=== PATIENT | male | born 1970 | race African-American/Black ===

== ENCOUNTER 2024-09-05 14:00 | Emergency (ER) | payer OTHER ==
--- NOTE | 2024-09-05 14:13 | ED ---
Syncope HPI - General Source: patient, EMS Mode of arrival: EMS <David Noe - Last Filed: 09/05/24 16:06> <Bandar Piña - Last Filed: 09/05/24 20:35> - General Stated Complaint: near syncope - History of Present Illness Initial Comments: Patient is a 54-year-old male with history of alcohol use disorder presented to the ER with dizziness, lightheadedness, nausea and vomiting started earlier this afternoon after he woke from a nap. Patient reports that this afternoon after he woke up from nap he started feeling nauseous and reports his legs felt funny. He also endorsed lightheadedness. Denies any falls. No loss of consciousness or passing out. Patient has been on naltrexone for alcohol use disorder for the past week however missed the doses for today and yesterday. Patient denies fever, chills, cough, runny nose, sore throat, chest pain, palpitations, belly pain, diarrhea, constipation, lower extremity swelling. (David Noe) - Related Data Home Medications Medication Instructions Recorded Confirmed Naltrexone HCl 50 mg PO PC-LUNCH 09/05/24 09/05/24 hydrOXYzine HCL [Atarax] 50 mg PO HS 09/05/24 09/05/24 Previous Rx's Medication Instructions Recorded Fluticasone Nasal [place] [Flonase 1 spray EA NOSTRIL DAILY #16 gm 09/05/24 Nasal [place]] Sodium Chloride [Saline Mist] 1 spray EA NOSTRIL TID #45 ml 09/05/24 Allergies Allergy/AdvReac Type Severity Reaction Status Date / Time No Known Allergies Allergy Verified 09/05/24 14:32 Review of Systems ROS Other: All systems not noted in ROS Statement are negative. Constitutional: Reports: weakness. Denies: fever, chills ENT: Denies: ear pain, throat pain Respiratory: Denies: cough, dyspnea Cardiovascular: Denies: chest pain, palpitations Gastrointestinal: Reports: nausea. Denies: abdominal pain, vomiting, diarrhea, constipation Musculoskeletal: Denies: back pain <David Noe - Last Filed: 09/05/24 16:06> ROS Other: All systems not noted in ROS Statement are negative. <Bandar Piña - Last Filed: 09/05/24 20:35> ROS Statement: Those systems with pertinent positive or pertinent negative responses have been documented in the HPI. Past Medical History Past Medical History: No Reported History Past Surgical History: Orthopedic Surgery Additional Past Surgical History / Comment(s): plates in L side jaw Smoking Status: Current every day smoker Past Alcohol Use History: Abuse Past Drug Use History: None Reported <David Noe - Last Filed: 09/05/24 16:06> General Exam <David Noe - Last Filed: 09/05/24 16:06> - General Exam Comments Initial Comments: GENERAL: This is a 54-year-old in no apparent distress at the time of examination. Pleasant and cooperative. HEENT: Head is atraumatic, normocephalic. Pupils are equal, round, and reactive to light. Sclerae anicteric. Conjunctivae are clear. RESPIRATORY: Clear to auscultation. No wheezes, rales, or rhonchi. No use of accessory muscles. CARDIOVASCULAR: Regular rate and rhythm. S1 and S2 noted. No systolic or diastolic murmur auscultated. GASTROINTESTINAL: No distention noted. Abdomen soft and round. Normal active bowel sounds auscultated x 4 quadrants. INTEGUMENTARY: No cyanosis. No jaundice. No rashes noted. No cellulitis noted. EXTREMITIES: 2+ peripheral pulses. No evidence of peripheral edema. No calf tenderness noted. NEUROLOGIC: Cranial nerves II-XII intact. Intact bilateral muscle strength and sensation in upper and lower extremities PSYCHIATRIC: Awake, alert, and oriented X 3. Appropriate affect. Intact judgement and insight. (David Noe) Course Vital Signs 09/05/24 09/05/24 14:02 18:23 Temperature 98.3 F 98.6 F Pulse Rate 56 L 62 Respiratory 18 20 Rate Blood Pressure 149/91 186/99 O2 Sat by Pulse 100 100 Oximetry Medical Decision Making - Lab Data Result diagrams: 09/05/24 14:44 09/05/24 14:44 <David Noe - Last Filed: 09/05/24 16:06> - Lab Data Result diagrams: 09/05/24 14:44 09/05/24 14:44 <Bandar Piña - Last Filed: 09/05/24 20:35> - Medical Decision Making Was pt. sent in by a medical professional or institution (, PA, BIZTALK CONSULTANT, urgent care, hospital, or halfway...) When possible be specific @ -No Did you speak to anyone other than the patient for history (EMS, parent, family, police, friend...)? What history was obtained from this source @ -No Did you review nursing and triage notes (agree or disagree)? Why? @ -I reviewed and agree with nursing and triage notes Were old charts reviewed (outside hosp., previous admission, EMS record, old EKG, old radiological studies, urgent care reports/EKG's, halfway records)? Report findings @ -No old charts were reviewed Differential Diagnosis? @ -Viral gastroenteritis, COVID, flu, RSV EKG interpreted by me (3pts min.). @ -Sinus bradycardia with ventricular rate 59 bpm, QTc interval 4.1 ms, no ST elevation or depression. X-rays interpreted by me (1pt min.). @ -Chest x-ray showed no acute cardiopulmonary disease/process. CT interpreted by me (1pt min.). @ -None done U/S interpreted by me (1pt. min.). @ -None done What testing was considered but not performed or refused? (CT, X-rays, U/S, labs)? Why? @ -None What meds were considered but not given or refused? Why? @ -None Did you discuss the management of the patient with other professionals (professionals i.e. , PA, BIZTALK CONSULTANT, lab, RT, psych nurse, sexual assault social worker, buttonhole marker, teacher, chief resource officer, oil field caser)? Give summary @ -Discussed with attending physician Was smoking cessation discussed for >3mins.? @ -No Was critical care preformed (if so, how long)? @ -No Were there social determinants of health that impacted care today? How? (Homeles sness, low income, unemployed, alcoholism, drug addiction, transportation, low edu. Level, literacy, decrease access to med. care, long-term, rehab)? @ -No Was there de-escalation of care discussed even if they declined (Discuss DNR or withdrawal of care, Hospice)? DNR status @ -No What co-morbidities impacted this encounter? (DM, HTN, Smoking, COPD, CAD, Cancer, CVA, ARF, Chemo, Hep., AIDS, mental health diagnosis, sleep apnea, morbid obesity)? @ -Alcohol use disorder Was patient admitted / discharged? Hospital course, mention meds given and route, prescriptions, significant lab abnormalities, going to OR and other pertinent info. @ -Patient is a 54-year-old male with history of alcohol use disorder presented to the ER with acute onset nausea, lightheadedness that started this afternoon. Chest x-ray showed no acute cardiopulmonary disease/process. EKG showed sinus bradycardia with ventricular rate 59 bpm, QTc interval 4.1 ms, no ST elevation or depression. CBC was unremarkable. CMP showed elevated creatinine. Pending viral respiratory panel results. I have signed off this patient to Dr. Piña. Undiagnosed new problem with uncertain prognosis? @ -No Drug Therapy requiring intensive monitoring for toxicity (Heparin, Nitro, Insulin, Cardizem)? @ -No Were any procedures done? @ -No Diagnosis/symptom? @ -Viral gastroenteritis Acute, or Chronic, or Acute on Chronic? @ -Acute Uncomplicated (without systemic symptoms) or Complicated (systemic symptoms)? @ -Uncomplicated Side effects of treatment? @ -No Exacerbation, Progression, or Severe Exacerbation? @ -No Poses a threat to life or bodily function? How? (Chest pain, [place], [place], pneumonia, PE, COPD, DKA, ARF, appy, cholecystitis, CVA, Diverticulitis, Homicidal, Suicidal, threat to staff... and all critical care pts) @ -No (Kusum,David) I personally saw the patient and performed the critical portion of the service. I discussed the patient care with the resident. I directed management, care planning and final disposition of the patient. This includes, but not limited to, review of all lab work, radiological studies, EKG's, consultations, vital signs, and nursing notes. EKG interpreted by me (3pts min.) @As above X-Rays interpreted by me (1 pt min.) @Chest x-ray reveals no obvious acute cardiopulmonary process CT interpreted by me ( 1pt min.) @None U/S interpreted by me (1 pt min.) @None 12-lead Electrocardiogram Interpretation Note EKG was reviewed and interpreted by myself. 12-lead ECG performed at 1426 is interpreted by me as revealing sinus bradycardia at a rate of 59 beats per minute. [place] is normal. [place] interval is 151 ms, QRS duration is 105 ms, QTc is 421 ms.. There were no ST or T wave abnormalities to suggest myocardial ischemia or injury. R wave progression across the precordium was satisfactory. By my interpretation this EKG is non-diagnostic for acute ischemia. Patient was being evaluated by resident for lightheadedness, nausea and vomiting, as well as some chronic neck pain that awoke him from nap. Laboratory studies returned unremarkable. Mild creatinine bump of 1.31 but patient is receiving IV fluids. Likely reactive to dehydration. Viral swabs negative. Chest x-ray unremarkable. EKG unremarkable. When I evaluate the patient we discussed possibility of possible viral syndrome. He did disclose to me that he was having some sinus congestion is concerned for sinus infection. I did examine his ears which were unremarkable bilaterally. Patient does have chronic cervical spine issues and he believes this is similar to previous episodes of it as he does have a history of radiculopathy which she is having. I discussed with them, and patient will receive a dose of IV steroids as well as Toradol. He has Motrin at home. He is also asking for a conversion from Flonase and nasal spray which will be provided. He overall is feeling improved. He will be discharged home at this time with strict return precautions. He was in agreement this plan. He is overall feeling improved. Diagnosis/symptom? @ -Congestion, chronic neck pain Acute, or Chronic, or Acute on Chronic? @ -Acute Uncomplicated (without systemic symptoms) or Complicated (systemic symptoms)? @ -Uncomplicated Side effects of treatment? @ -None Exacerbation, Progression, or Severe Exacerbation] @ -No Poses a threat to life or bodily function? @ -Unlikely at this time (Bandar Piña) - Lab Data Lab Results 09/05/24 09/05/24 09/05/24 Range/Units 14:44 14:44 16:19 WBC 5.9 (3.8-10.6) k/uL RBC 4.61 (4.30-5.90) m/uL Hgb 13.7 (13.0-17.5) gm/dL Hct 41.0 (39.0-53.0) % MCV 89.0 (80.0-100.0) fL MCH 29.7 (25.0-35.0) pg MCHC 33.3 (31.0-37.0) g/dL RDW 13.6 (11.5-15.5) % Plt Count 211 (150-450) k/uL MPV 8.0 Neutrophils % 47 % Lymphocytes % 42 % Monocytes % 7 % Eosinophils % 1 % Basophils % 1 % Neutrophils # 2.8 (1.3-7.7) k/uL Lymphocytes # 2.5 (1.0-4.8) k/uL Monocytes # 0.4 (0-1.0) k/uL Eosinophils # 0.1 (0-0.7) k/uL Basophils # 0.0 (0-0.2) k/uL Sodium 135 L (137-145) mmol/L Potassium 3.8 (3.5-5.1) mmol/L Chloride 102 (98-107) mmol/L Carbon Dioxide 26 (22-30) mmol/L Anion Gap 7 mmol/L BUN 13 (9-20) mg/dL Creatinine 1.31 H (0.66-1.25) mg/dL Est GFR (CKD-EPI)AfAm 71 (>60 ml/min/1.73 sqM) Est GFR (CKD-EPI)NonAf 61 (>60 ml/min/1.73 sqM) Glucose 107 H (74-99) mg/dL Calcium 8.9 (8.4-10.2) mg/dL Total Bilirubin 0.9 (0.2-1.3) mg/dL AST 36 (17-59) U/L ALT 24 (4-49) U/L Alkaline Phosphatase 47 (38-126) U/L Total Protein 6.9 (6.3-8.2) g/dL Albumin 4.1 (3.5-5.0) g/dL Amylase 53 (30-110) U/L Lipase 68 (23-300) U/L Influenza Type A (PCR) Not Detected (Not Detectd) Influenza Type B (PCR) Not Detected (Not Detectd) RSV (PCR) Not Detected (Not Detectd) SARS-CoV-2 (PCR) Not Detected (Not Detectd) Disposition Is patient prescribed a controlled substance at d/c from ED?: No <David Noe - Last Filed: 09/05/24 16:06> Is patient prescribed a controlled substance at d/c from ED?: No Time of Disposition: 17:53 <Bandar Piña - Last Filed: 09/05/24 20:35> Clinical Impression: Sinus congestion, Chronic neck pain Disposition: HOME SELF-CARE Condition: Good Additional Instructions: Every disease is a spectrum and a small chance still exists that a serious condition could develop, for this reason, please monitor yourself closely for new, changing or worsening symptoms, new confusion, changes in behavior, severe headache, changes in vision, numbness, weakness, chest pain, fever, inability to tolerate/keep down fluids or your medications, inability to follow up with outpatient providers as instructed and should you experience these symptoms or should you have any further concerns for your wellbeing please return to the ED or call 911 immediately. PLEASE call your primary care physician as soon as possible to arrange / discuss plan for followup appointment. Appointment in the next 1-3 days is strongly encouraged if possible. PLEASE let us know here before you leave if there is anything further we can do to be of any assistance. Take care and feel Better! Prescriptions: Fluticasone Nasal [place] [Flonase Nasal [place]] 1 spray EA NOSTRIL DAILY #16 gm Sodium Chloride [Saline Mist] 1 spray EA NOSTRIL TID #45 ml Referrals: Nonstaff,Physician [Primary Care Provider] - 1-2 days Forms: Area PCPs
[2024-09-05] MEDS: ONDANSETRON 4 MG/2 ML VIAL IVP STA (14:56)
[2024-09-05] MEDS: SODIUM CHLORIDE 0.9% 1,000 ML IV ONE (14:57)
[2024-09-05 15:07] LABS: Basophils % (A) 1 %; Eosinophils # (A) 0.1 k/uL (0-0.7); Eosinophils % (A) 1 %; HGB 13.7 gm/dL (13.0-17.5); Lymphocytes # (A) 2.5 k/uL (1.0-4.8); Lymphocytes % (A) 42 %; MCH 29.7 pg (25.0-35.0); MCHC 33.3 g/dL (31.0-37.0); Monocytes # (A) 0.4 k/uL (0-1.0); Monocytes % (A) 7 %; Neutrophils # (A) 2.8 k/uL (1.3-7.7); Neutrophils % (A) 47 %; Platelet Count 211 k/uL (150-450); RBC 4.61 m/uL (4.30-5.90); RDW 13.6 % (11.5-15.5); WBC 5.9 k/uL (3.8-10.6)
[2024-09-05 15:20] LABS: ALT 24 U/L (4-49); African American GFR (CKD) 71 (>60 ml/min/1.73 sqM); Albumin 4.1 g/dL (3.5-5.0); Amylase 53 U/L (30-110); Anion Gap 7 mmol/L; Blood Urea Nitrogen 13 mg/dL (9-20); Calcium 8.9 mg/dL (8.4-10.2); Carbon Dioxide 26 mmol/L (22-30); Chloride 102 mmol/L (98-107); Glucose 107 mg/dL (74-99); Lipase 68 U/L (23-300); Non-African American GFR(CKD) 61 (>60 ml/min/1.73 sqM); Sodium 135 mmol/L (137-145); Total Bilirubin 0.9 mg/dL (0.2-1.3); Total Protein 6.9 g/dL (6.3-8.2)
--- NOTE | 2024-09-05 15:36 | XR ---
EXAMINATION TYPE: XR chest 2V DATE OF EXAM: 09/05/2024 3:08 PM COMPARISON: None TECHNIQUE: XR chest 2V Frontal and lateral views of the chest. CLINICAL INDICATION:Male, 54 years old with history of lightheaded; FINDINGS: Lungs/Pleura: There is no evidence of pleural effusion, focal consolidation, or pneumothorax. Elevat ion of the right hemidiaphragm. Pulmonary vascularity: Unremarkable. Heart/mediastinum: Cardiomediastinal silhouette is unremarkable. Musculoskeletal: No acute osseous pathology. IMPRESSION: No acute cardiopulmonary disease/process. [facility], , 09/05/2024 3:34 PM
[2024-09-05 15:40] LABS: AST 36 U/L (17-59); Alkaline Phosphatase 47 U/L (38-126); Potassium 3.8 mmol/L (3.5-5.1)
[2024-09-05 17:01] LABS: Influenza A Not Detected (Not Detectd); Influenza B Not Detected (Not Detectd); RSV Not Detected (Not Detectd)
[2024-09-05] MEDS: methylPREDNISolone SOD SUCCI 40 MG/ML 1 ML VIAL IV STA (18:15)
[2024-09-05] MEDS: KETOROLAC 15 MG/ML 1 ML VIAL IVP STA (18:15)
[2024-09-05 18:26] VITALS: BP 186/99; PULSE 62; RESP 20; TEMP 98.6
== END 2024-09-05 18:26 | disposition home or self-care (01) ==
LOC: EC 14:00
DX: A08.4 Viral intestinal infection, unspecified (principal); R09.81 Nasal congestion; G89.29 Other chronic pain; M54.2 Cervicalgia; R00.1 Bradycardia, unspecified; R79.89 Other specified abnormal findings of blood chemistry; F10.10 Alcohol abuse, uncomplicated; F17.200 Nicotine dependence, unspecified, uncomplicated; Z11.52 Encounter for screening for COVID-19
CPT/HCPCS: 99285; 96374; 96375 ×2; 96361 ×3; 36415; 93005; 80053; 82150; 83690; 85025; 87636; 71046; J2405; J1885; J2919